=== PATIENT | female | born 2000 | race Two or more races ===

== ENCOUNTER 2024-01-10 12:26 | Emergency (ER) | payer MEDICAID, OTHER ==
[~2024-01-10] VITALS: Ht 165.1 cm; Wt 63.6 kg
--- NOTE | 2024-01-10 13:10 | ED.PDOC ---
GI ASSESSMENT HPI Comments HPI: Poor Historian. 23-year-old female with history of chronic constipation presents to emergency department for constipation. Last normal bowel movement was three days ago and she had some small bowel movement last night. Patient states feeling today some dizziness with sitting and standing and some nausea. Patient is otherwise healthy goes to the gym daily and exercises. Patient went to urgent Care was sent here for further evaluation. Denies Vitals T: 98.9 F RR: 16 HR: 92 BP: 114/57 O2: 98 % on RA PMH: constipation PSH: denies Social hx: denies tobacco use, denies ETOH use, denies drug use medications; denies allergies: NKDA REVIEW OF SYSTEMS: CONSTITUTIONAL: Denies acute: fever, diaphoresis, chills, HEAD: Denies acute: headache, photophobia Eyes: Denies acute: Double vision, vision loss, eye pain, eye discharge. EARS: Denies acute: tinnitus, hearing loss, ear discharge, ear pain, THROAT: Denies acute: sore throat, swelling, difficulty swallowing , pain with swallowing, change in voice. NECK: Denies acute: neck pain, neck swelling, stiff neck. HEART: Denies acute : chest pain, palpitations, LUNGS: Denies acute: SOB, wheezing, cough, hemoptysis ABDOMEN: Denies acute: Vomiting, diarrhea, melena , hematemesis, hematochezia SKIN: Denies acute: rash, redness, lesions, itchiness. EXTREMITIES: Denies acute: calf pain, numbness, tingling, weakness, denies pain in extremity. Denies acute: Low back pain. Neuro: Denies acute: focal neurological deficit, motor or sensory focal neurological deficit, tremors, seizure like activity, confusion, change in mental status, loss of bowel or bladder function, cauda equina like symptoms. : Denies acute: dysuria, hematuria, flank pain, increase in urinary frequency. PSYCH: Denies acute: hallucination, suicidal ideation, homicidal ideation. FEMALE: Denies acute: abnormal vaginal bleeding, foul odor, unusual discharge. PHYSICAL EXAM: General: no acute distress, awake and alert. Head: normocephalic, atraumatic. Neck: supple, trachea is midline, no swelling. Throat: Normal phonation. Eyes:, no erythema, no purulent discharge, no proptosis, no icterus. Heart: regular rate, regular rhythm, no significant murmur appreciated. Lungs: no apparent respiratory distress, Able to speak in full sentences. No wheezing, no rhonchi, no crackles. No stridors Clear to auscultation bilaterally. Abdomen: non tender to palpation, non distended, soft, no guarding, no rebound, + bowel sounds. Neuro: Awake, Alert, oriented to name, self, situation, follows commands GCS=15. Speech is normal. Skin: no petechia, no purpura, no cyanosis, non-pale, not jaundice. Lower extremities: --no - Pitting edema no deformity, no focal swelling, no calf TTP. Makes eye contact. moves all four extremities. Face: no apparent facial droop. Ambulating in the ED independently. Chief Complaint: Constipation Time Seen by MD: 12:40 Primary Care Provider: NONE Reviewed Notes: Nurses Notes, Medications, Allergies Allergies: Coded Allergies: NO KNOWN ALLERGIES (Unverified , 01/10/24) Information Source: Patient Mode of Arrival: Ambulatory Past Medical History PAST MEDICAL HISTORY: Denies Surgical History: Denies all surgeries DESIGN EDITOR History: Denies all DESIGN EDITOR Hx Family History Family History: Reviewed,noncontributory to illness Social History Smoker: Non-Smoker Alcohol: Denies ETOH Use Drugs: Denies Drug Use Lives In: Home Was a procedure done? Was a procedure done?: No GI differential Dx Differential Diagnosis: Esophageal rupture (DDX include Diverticulitis, colitis, gastroenteritis, acute abdomen, bowel obstruction, enteritis, constipation, volvulus, , intraAbdominal mass/neoplasm, Inflammatory bowel disease, ischemic bowel, gastroparesis, narcotics abuse/dependency, fecal impaction, low fiber intake.), Other (DDX include Diverticulitis, colitis, gastroenteritis, acute abdomen, SBO, enteritis, constipation, volvulus, appen dicitis, Gallbladder disease, choledocolithiasis, ascending cholangitis, pancreatitis, intraAbdominal mass/neoplasm, hepatitis, UTI, pylonephritis, kidney stone, aneurysm, dissection, Inflammatory bowel disease, gastroparesis, ischemic bowel, ovarian torsion, ovarian cyst/mass, tubo-ovarian abscess, , ectopic , PID, STD.) X-Ray, Labs, Meds, VS Vital Signs Date Time Temp Pulse Resp B/P (MAP) Pulse Ox O2 Delivery O2 Flow Rate FiO2 01/10/24 15:39 92 18 100 Room Air 01/10/24 15:39 99.0 92 18 109/64 (79) 100 99.0 01/10/24 12:37 98.9 92 16 114/57 (76) 98 Lab Test 01/10/24 12:55 01/10/24 12:38 Range/Units White Blood Count 5.5 4.4-10.8 10^3/uL Red Blood Count 4.81 4.0-5.20 10^6/uL Hemoglobin 13.5 12.2-16.2 g/dL Hematocrit 41.2 36.0-46.0 % Mean Corpuscular Volume 85.7 80.0-100.0 fL Mean Corpuscular Hemoglobin 28.0 28.0-32.0 pg Mean Corpuscular Hemoglobin Concent 32.6 32.0-36.0 g/dL Red Cell Distribution Width 14.9 H 11.8-14.3 % Platelet Count 206 140-450 10^3/uL Mean Platelet Volume 9.9 6.9-10.8 fL Neutrophils (%) (Auto) 67.7 37.0-80.0 % Lymphocytes (%) (Auto) 25.1 10.0-50.0 % Monocytes (%) (Auto) 6.5 0.0-12.0 % Eosinophils (%) (Auto) 0.2 0.0-7.0 % Basophils (%) (Auto) 0.5 0.0-2.0 % Neutrophils # (Auto) 3.7 1.6-8.6 10 ^3/uL Lymphocytes # (Auto) 1.4 0.4-5.4 10 ^3/uL Monocytes # (Auto) 0.4 0-1.3 10 ^3/uL Eosinophils # (Auto) 0 0-0.8 10 ^3/uL Basophils # (Auto) 0 0-0.2 10 ^3/uL Nucleated Red Blood Cells 0.0 % Sodium Level 140 136-145 mmol/L Potassium Level 4.2 3.5-5.1 mmol/L Chloride Level 107 98-107 mmol/L Carbon Dioxide Level 25 20-31 mmol/L Anion Gap 8 5-15 Blood Urea Nitrogen 13 9-23 mg/dL Creatinine 0.53 L 0.550-1.02 mg/dL Glomerular Filtration Rate Calc 132 >90 mL/min BUN/Creatinine Ratio 24.5 H 10.0-20.0 Serum Glucose 83 74-106 mg/dL Lactic Acid Level 1.2 0.4-2.0 mmol/L Calcium Level 9.9 8.7-10.4 mg/dL Total Bilirubin 1.0 0.2-1.0 mg/dL Aspartate Amino Transferase (AST) 20 13-40 U/L Alanine Aminotransferase (ALT) 17 7-40 U/L Alkaline Phosphatase 82 46-116 U/L Troponin I High Sensitivity < 3 L </=34 ng/L Total Protein 7.2 5.7-8.2 g/dL Albumin 4.7 3.2-4.8 g/dL Lipase 29 12-53 U/L Beta HCG, Quantitative 1.7 1.5-4.2 mIU/mL Urine Color Yellow Yellow Urine Clarity Clear Clear Urine pH 5.5 5.0-9.0 Urine Specific [place] 1.029 1.001-1.035 Urine Protein Trace H Negative Urine Ketones 3+ H Negative Urine Blood 2+ H Negative /uL Urine Nitrite Negative Negative Urine Bilirubin Negative Negative Urine Urobilinogen Normal Negative mg/dL Urine Leukocyte Esterase Negative Negative /uL Urine RBC 3 0 - 4 /hpf Urine WBC 2 0 - 5 /hpf Urine Squamous Epithelial Cells Few <5 /hpf Urine Bacteria Few H None Seen /hpf Urine Mucus Few None Seen Urine Glucose Normal Normal mg/dL Current Medications Medications (Trade) Dose Ordered Sig/Mervin Route Start Time Stop Time Status Last Admin Polyethylene Glycol/ Electrolytes (Golytely) 1 kit ONCE ONCE PO 01/10/24 15:30 01/10/24 15:41 DC 01/10/24 15:49 [place] [address] Ph: [phone] DIAGNOSTIC IMAGING Diagnostic Imaging Report : [id number] Signed PATIENT: SAUL MCALLISTER ACCT: [id number] UNIT: [id number] : 2000 LOC: ER ROOM / BED: / AGE / SEX: 23 / F ADM STATUS: REG ER SERVICE [id number] ORDERING PHYSICIAN: ROHIT SALAZAR DO PROCEDURE(s): ABPL - CT AB PEL WO CON-NO ORAL OR IV REASON: constipation/ dizzy/ nausea ORDER NUMBER(s): [id number], ACCESSION NUMBER(s): [id number] CT ABDOMEN AND PELVIS WITHOUT CONTRAST CLINICAL HISTORY: constipation/ dizzy/ nausea TECHNIQUE: Multiple contiguous axial images of the abdomen and pelvis without intravenous contrast. The images were reformatted degenerate coronal and sagittal reconstructions. All CT scans at this medical facility are performed using dose modulation techniques as appropriate to a performed exam including the following:Automated exposure control was utilized; adjustment of the MA and/or KV according to patient size; and use of iterative reconstruction technique. Radiation Dose Information: CT Dose: CTDI volume is 6.32 mGy. Dose-length product is 325.08 mGy*cm Comparison: None FINDINGS: Evaluation of the abdomen and pelvis is limited without intravenous contrast. The liver, gallbladder, pancreas, kidneys, adrenal glands, and spleen appear within normal limits. There is no gross evidence of abdominal lymphadenopathy. There is no free fluid or free air. The stomach grossly appears unremarkable. The small and large bowel loops demonstrate normal caliber. There are scattered diverticula in the distal colon without evidence of acute diverticulitis. The abdominal aorta and IVC appear within normal limits. The bladder appears unremarkable for the degree of distention. Pelvic organ appears within normal limits. There is a 2.5 cm cystic structure in the right pelvis likely an ovarian cyst/ follicle. There is no gross evidence of a pelvic mass. There is no free fluid collection. Lung bases are clear. There is no acute osseous abnormality. IMPRESSION: 1. There is no acute process in the abdomen and pelvis. 2. Scattered diverticula in the distal colon. 3. 2.5 cm right ovarian cyst/follicle. HS:Y ATED BY: GIGI CARPIO MD DICTATED DATE/TIME: 01/10/241425 SIGNED BY: GIGI CARPIO MD SIGNED DATE/TIME: 01/10/241425 CC: Time of 1ST Reevaluation: 00:00 Reevaluation 1ST: Improved Patient Education/Counseling: Diagnosis, Treatment Family Education/Counseling: No Family Present Comments Patient presented with the above HPI.---constipation/abdominal pain---workup was initiated. patient was found with the above mentioned diagnosis. Patient was given: Karl Patient ED course and VS have been stabilized. Patient has been reassessed in the ED and remained in a stable condition. Pertinent incidental findings were discussed with the patient and/or family. Patient/family voices understanding and is agreeable with plan. Patient has been observed in the ED adequate length of time to insure improvement/stability. patient was discharged home in a stable condition. All the reports of any imaging studies that were ordered by myself were reviewed by myself. Departure 1 Departure Time of Disposition: 15:29 Impression: Primary Impression: Constipation Additional Impression: Ovarian cyst Disposition: 01 HOME / SELF CARE / HOMELESS Condition: Stable Additional Instructions: Additional discharge instructions: You MUST follow-up with your primary care/family doctor in 1 to 2 days. If you are unable to see your primary care/family doctor, please return to our emergency room for re-assessment and re-evaluation in 1 to 2 days. Return to the emergency room here in our facility or to the nearest ER ROSE if your symptoms change or worsen. CONSULTATIONS: you MUST Follow-up for consultation as soon as possible with: gastroenterology in 1-2 days. You MUST call the consultants office yourself to make an appointment. You may need to arrange that through your insurance and/or your primary/family doctor. If you are unable to see the interior design consultant in 1 to 2 days, you must return to our emergency room (or any other ER of your choice) for re-assessment and re- evaluation. Adequate fluid hydration. Finish the GoLYTELY bottle in the next 24 hours. Liquid diet in next 72 hours. Increase fiber intake. Below is a copy of your radiological report for follow up: [place] [address] Ph: [phone] DIAGNOSTIC IMAGING Diagnostic Imaging Report : [id number] Signed PATIENT: SAUL MCALLISTER ACCT: [id number] UNIT: [id number] : 2000 LOC: ER ROOM / BED: / AGE / SEX: 23 / F ADM STATUS: REG ER SERVICE 1241 ORDERING PHYSICIAN: ROHIT SALAZAR DO PROCEDURE(s): ABPL - CT AB PEL WO CON-NO ORAL OR IV REASON: constipation/ dizzy/ nausea ORDER NUMBER(s): [id number], ACCESSION NUMBER(s): [id number] CT ABDOMEN AND PELVIS WITHOUT CONTRAST CLINICAL HISTORY: constipation/ dizzy/ nausea TECHNIQUE: Multiple contiguous axial images of the abdomen and pelvis without intravenous contrast. The images were reformatted degenerate coronal and sagittal reconstructions. All CT scans at this medical facility are performed using dose modulation techniques as appropriate to a performed exam including the following:Automated exposure control was utilized; adjustment of the MA and/or KV according to patient size; and use of iterative reconstruction technique. Radiation Dose Information: CT Dose: CTDI volume is 6.32 mGy. Dose-length product is 325.08 mGy*cm Comparison: None FINDINGS: Evaluation of the abdomen and pelvis is limited without intravenous contrast. The liver, gallbladder, pancreas, kidneys, adrenal glands, and spleen appear within normal limits. There is no gross evidence of abdominal lymphadenopathy. There is no free fluid or free air. The stomach grossly appears unremarkable. The small and large bowel loops demonstrate normal caliber. There are scattered diverticula in the distal colon without evidence of acute diverticulitis. The abdominal aorta and IVC appear within normal limits. The bladder appears unremarkable for the degree of distention. Pelvic organ appears within normal limits. There is a 2.5 cm cystic structure in the right pelvis likely an ovarian cyst/ follicle. There is no gross evidence of a pelvic mass. There is no free fluid collection. Lung bases are clear. There is no acute osseous abnormality. IMPRESSION: 1. There is no acute process in the abdomen and pelvis. 2. Scattered diverticula in the distal colon. 3. 2.5 cm right ovarian cyst/follicle. HS:Y ATED BY: GIGI CARPIO MD DICTATED DATE/TIME: 01/10/241425 SIGNED BY: GIGI CARPIO MD SIGNED DATE/TIME: 01/10/241425 CC: Discharged With: Self Critical Care Note Critical Care Time?: No I personally scribed for ROHIT SALAZAR DO ([email or web address]) on 01/10/24 at 14:45. Electronically submitted by Migel Barksdale ([email or web address]). ROHIT SALAZAR DO Jan 10, 2024 13:10
[2024-01-10 13:15] LABS: Basophils # (auto) 0 10 ^3/uL (0-0.2); Basophils % (auto) 0.5 % (0.0-2.0); Eosinophils # (auto) 0 10 ^3/uL (0-0.8); Eosinophils % (auto) 0.2 % (0.0-7.0); Hematocrit 41.2 % (36.0-46.0); Hemoglobin 13.5 g/dL (12.2-16.2); Lymphocytes # (auto) 1.4 10 ^3/uL (0.4-5.4); Lymphocytes % (auto) 25.1 % (10.0-50.0); Mean Corpuscular Hgb Conc. 32.6 g/dL (32.0-36.0); Mean Corpuscular Volume 85.7 fL (80.0-100.0); Monocytes # (auto) 0.4 10 ^3/uL (0-1.3); Monocytes % (auto) 6.5 % (0.0-12.0); Neutrophils # (auto) 3.7 10 ^3/uL (1.6-8.6); Neutrophils % (auto) 67.7 % (37.0-80.0); Platelet Count (auto) 206 10^3/uL (140-450); Red Blood Cells 4.81 10^6/uL (4.0-5.20); Red Cell Distribution Width 14.9 % (11.8-14.3); White Blood Cell 5.5 10^3/uL (4.4-10.8)
[2024-01-10 13:38] LABS: Alanine Aminotransferase 17 U/L (7-40); Alkaline Phosphatase 82 U/L (46-116); Anion Gap 8 (5-15); Aspartate Aminotransferase 20 U/L (13-40); BUN/Creatinine Ratio 24.5 (10.0-20.0); Blood Urea Nitrogen 13 mg/dL (9-23); Calcium 9.9 mg/dL (8.7-10.4); Carbon Dioxide 25 mmol/L (20-31); Chloride 107 mmol/L (98-107); Glucose 83 mg/dL (74-106); Lipase 29 U/L (12-53); Potassium 4.2 mmol/L (3.5-5.1); Sodium 140 mmol/L (136-145)
[2024-01-10 13:39] LABS: Albumin 4.7 g/dL (3.2-4.8); Total Protein 7.2 g/dL (5.7-8.2)
[2024-01-10 14:15] LABS: Urine Bacteria FEW /hpf (None Seen); Urine Blood 2+ /uL (Negative); Urine Clarity Clear (Clear); Urine Color Yellow (Yellow); Urine Mucus FEW (None Seen); Urine Protein, UAD TRACE (Negative); Urine Specific Gravity 1.029 (1.001-1.035); Urine Urobilinogen Normal (Negative); Urine WBC 2 /hpf (0 - 5); Urine pH 5.5 (5.0-9.0)
--- NOTE | 2024-01-10 14:28 | DVH ---
CT ABDOMEN AND PELVIS WITHOUT CONTRAST CLINICAL HISTORY: constipation/ dizzy/ nausea TECHNIQUE: Multiple contiguous axial images of the abdomen and pelvis without intravenous contrast. The images were reformatted degenerate coronal and sagittal reconstructions. All CT scans at this medical facility are performed using dose modulation techniques as appropriate t o a performed exam including the following:Automated exposure control was utilized; adjustment of the MA and/or KV according to patient size; and use of iterative reconstruction technique. Radiation Dose Information: CT Dose: CTDI volume is 6.32 mGy. Dose-length product is 325.08 mGy*cm Comparison: None FINDINGS: Evaluation of the abdomen and pelvis is limited without intravenous contrast. The liver, gallbladder, pancreas, kidneys, adrenal glands, and spleen appear within normal limits. There is no gross evidence of abdominal lymphadenopathy. There is no free fluid or free air. The stomach grossly appears unremarkable. The small and large bowel loops demonstrate normal caliber . There are scattered diverticula in the distal colon without evidence of acute diverticulitis. The abdominal aorta and IVC appear within normal limits. The bladder appears unremarkable for the degree of distention. Pelvic organ appears within normal murphy its. There is a 2.5 cm cystic structure in the right pelvis likely an ovarian cyst/ follicle. There is no gross evidence of a pelvic mass. There is no free fluid collection. Lung bases are clear. There is no acute osseous abnormality. IMPRESSION: 1. There is no acute process in the abdomen and pelvis. 2. Scattered diverticula in the distal colon. 3. 2.5 cm right ovarian cyst/follicle. HS:Y
[2024-01-10 15:39] VITALS: BP 109/64; PULSE 92; RESP 18; TEMP 99; O2SAT 100
[2024-01-10] MEDS: GOLYTELY 4L KIT PO ONE (15:49)
== END 2024-01-10 16:10 | disposition home or self-care (01) ==
LOC: ER 12:26
DX: K59.00 Constipation, unspecified (principal); R10.2 Pelvic and perineal pain; N83.201 Unspecified ovarian cyst, right side
CPT/HCPCS: 36415; 74176; 80053; 81001; 83605; 83690; 84484; 84702; 85025